=== PATIENT | male | born 1955 | race Caucasian/White ===

== ENCOUNTER 2020-02-09 16:40 | Outpatient (CLI) | payer OTHER ==
--- NOTE | 2020-02-09 17:59 | MRI Report ---
Reason: TREMOR Procedure Date: 02/09/2020 Accession Number: [id number] / [id number] Procedure: MRI - Brain W/O CPT Code: Final Report FULL RESULT: PROCEDURE: Brain W/O INDICATIONS: TREMOR TECHNIQUE: Noncontrast axial T1 spin echo, axial T2 fast spin echo, sagittal and axial FLAIR, coronal T2 fast spin echo, axial gradient echo, axial diffusion and ADC through the brain. COMPARISON: None. FINDINGS: Image quality: Excellent. CSF Spaces: Basal cisterns are patent. No extra-axial fluid collections. Ventricles are normal in size and shape. Brain: No intracranial masses or hemorrhage. Noel/white matter interface is normal. Mild brain parenchymal volume loss is seen. Mild chronic small vessel ischemic change is seen. Brainstem appears normal. Diffusion-weighted images demonstrate no acute ischemic insult. No chronic ischemic insults. Normal intravascular flow voids are present. Skull and face: Calvarium has normal marrow signal. Orbits appear normal. Sinuses: Mild mucosal thickening is seen within the inferior maxillary sinuses, right worse than left. No significant abnormal fluid can be seen within the mastoid air cells or within the middle ear cavities. IMPRESSION: Unremarkable noncontrast intracranial study for age, without an imaging explanation found for the patient's presenting history of tremor. Age-appropriate brain parenchymal volume loss and chronic small vessel ischemic change can be seen. Reviewed by: Rosendo Ventura MD on 02/09/2020 4:57 PM CHUCKY Approved by: Rosendo Ventura MD on 02/09/2020 4:57 PM CHUCKY Station ID: [id number]
== END 2020-02-09 16:41 | disposition home or self-care (01) ==
LOC: DI 16:40
PROVIDERS: ATTEND General Practice
DX: R25.1 Tremor, unspecified (principal)
CPT/HCPCS: 70551

== ENCOUNTER 2023-04-14 21:05 | Emergency (ER) | payer MEDICARE, OTHER ==
[2023-04-14 21:17] VITALS: BP 127/89; O2SAT 95
--- NOTE | 2023-04-14 21:42 | ED Physician Documentation ---
PD HPI ABD PAIN - Stated complaint Stated Complaint: - History obtained from History obtained from: Patient - Additional information Additional information: Patient is a 67-year-old male presenting for evaluation of lump in the right groin that he noticed this evening. Patient does report recently straining for bowel movements as well as lifting heavy items yesterday. He denies any associated pain. His last bowel movement was yesterday and normal. No associated nausea or vomiting. Denies prior known inguinal hernia. No testicular tenderness. No issues with urination. Review of Systems Constitutional: denies: Fever Cardiac: denies: Chest pain / pressure Respiratory: denies: Dyspnea GI: denies: Abdominal Pain, Vomiting : denies: Dysuria PD PAST MEDICAL HISTORY - Past Medical History Cardiovascular: None Respiratory: None Endocrine/Autoimmune: None GI: None : None HEENT: Chronic vision loss Psych: None Musculoskeletal: Other Derm: None - Past Surgical History Past Surgical History: No General: Colonoscopy - Present Medications Home Medications: Ambulatory Orders Medication Instructions Recorded Confirmed Acetaminophen [Tylenol] 650 mg PO Q6H PRN 03/11/16 03/15/16 Ascorbic Acid [Vitamin C] 2 tab PO DAILY 03/15/16 03/15/16 Multivitamin [Multivitamins] 1 cap PO DAILY 03/15/16 03/15/16 - Allergies Allergies/Adverse Reactions: Allergies Allergy/AdvReac Type Severity Reaction Status Date / Time No Known Drug Allergies Allergy Verified 03/11/16 09:55 - Social History Does the pt smoke?: No Smoking Status: Never smoker Does the pt drink ETOH?: Yes Does the pt have substance abuse?: No - Immunizations Immunizations are current?: Yes Immunizations: TDAP >10years/unknown PD ED PE NORMAL - General General: Alert and oriented X 3, No acute distress, Well developed/nourished - HEENT HEENT: Atraumatic, Moist mucous membranes - Neck Neck: Supple, no meningeal sign - Cardiac Cardiac: RRR - Respiratory Respiratory: No respiratory distress, Clear bilaterally - Abdomen Abdomen: Normal bowel sounds, Soft, Non tender, Non distended - Male Male : [employer] 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 On exam has an easily reducible right inguinal hernia. No signs of incarceration or strangulation. Abdominal exam is benign. No testicular swelling or tenderness. Patient counseled on need for close follow-up with general surgery as well as avoiding activities that may worsen the hernia. He is also counseled on strict return precautions. Departure - Departure Disposition: Home, Self Care Clinical Impression: Reducible right inguinal hernia Condition: Stable Instructions: ED Hernia Inguinal Follow-Up: [facility] [Provider Group] Comments: You have a hernia in your right groin at that at this time it is reducible. I have listed the information for the local surgery practice and would recommend calling in the morning for a follow-up appointment to discuss options to repair this hernia. In the meanwhile would recommend avoiding activities that may worsen the hernia such as straining for bowel movements or lifting heavy items. I would recommend using MiraLAX daily to keep your bowel movements soft and so that you do not have to strain. If it anytime you develop pain or having trouble pushing in your hernia please return to the emergency department. Forms: PCP List Discharge Date/Time: 04/14/23 21:53
== END 2023-04-14 21:53 | disposition home or self-care (01) ==
LOC: ED 21:05
DX: K40.90 Unilateral inguinal hernia, without obstruction or gangrene, not specified as recurrent (principal)
CPT/HCPCS: 99282; 99283